=== PATIENT | male | born 1985 | race American Indian/Alaskan Native ===

== ENCOUNTER 2019-05-15 11:27 | Emergency (ER) | payer SELFPAY ==
[2019-05-15 13:16] VITALS: BP 120/78
[2019-05-15] MEDS ORDERED: HYDROcodone/ACETAMINOPHEN 10-325MG TAB PO ONE (13:18)
--- NOTE | 2019-05-15 13:23 | Emergency Department Report ---
ED Lower Extremity HPI - General Chief Complaint: Extremity Injury, Lower Stated Complaint: LEFT BIG TOE CUT Time Seen by Provider: 05/15/19 13:18 Source: patient Mode of arrival: Ambulatory Limitations: No Limitations - History of Present Illness Initial Comments: 33-year-old -Faroese male presents to the emergency room for right great toe injury from a lawnmower. Patient states that he was backing up a lot more which is electric and his foot got caught under. Patient reports that his pain is a 10 out of 10. Patient came by EMS. Patient denies any past medical history. Patient report his last tetanus shot was a year and a half ago when this happened to his right great toe from a [place]. Patient reports he does have a ride home. MD Complaint: foot injury -: This afternoon Injury: Toes: Left (Great toe) Type of Injury: other (Mangled by electric lawnmower) Place: home Severity scale (0 -10): 10 Improves With: nothing Worsens With: nothing Treatments Prior to Arrival: bandage - Related Data Previous Rx's Medication Instructions Recorded Last Taken Type Acetaminophen/Codeine [Tylenol 1 tab PO Q4HR PRN #12 tablet 05/15/19 Unknown Rx /Codeine # 3 tab] cephALEXin [Keflex] 500 mg PO Q12HR 10 Days #20 cap 05/15/19 Unknown Rx Allergies Allergy/AdvReac Type Severity Reaction Status Date / Time No Known Allergies Allergy Unverified 05/15/19 13:18 ED Review of Systems ROS: Stated complaint: LEFT BIG TOE CUT Other details as noted in HPI ED Past Medical Hx - Medications Home Medications: Home Medications Medication Instructions Recorded Confirmed Last Taken Type Acetaminophen/Codeine [Tylenol 1 tab PO Q4HR PRN #12 tablet 05/15/19 Unknown Rx /Codeine # 3 tab] cephALEXin [Keflex] 500 mg PO Q12HR 10 Days #20 cap 05/15/19 Unknown Rx ED Physical Exam - General Limitations: No Limitations General appearance: alert, in no apparent distress - Head Head exam: Present: atraumatic, normocephalic - Eye Eye exam: Present: normal appearance - ENT ENT exam: Present: mucous membranes moist - Expanded Lower Extremity Exam Left Foot/Toe exam: Present: tenderness, deformity, nail avulsion - Neurological Exam Neurological exam: Present: alert, oriented X3 - Psychiatric Psychiatric exam: Present: normal affect, normal mood ED Course Vital Signs 05/15/19 13:15 Temperature 98.3 F Pulse Rate 70 Respiratory 22 Rate Blood Pressure 120/78 [Right] O2 Sat by Pulse 99 Oximetry ED Lower Extremity MDM - Radiology Data Radiology results: report reviewed Ordering Physician: GRACE ARANGO Date of Service: 05/15/19 Procedure(s): XR toe(s) 2+V LT Accession Number(s): [id number] cc: GRACE ARANGO Fluoro Time In Minutes: LEFT FIRST TOE 3 VIEWS INDICATION / CLINICAL INFORMATION: Left first toe laceration from lawnmower. COMPARISON: None available. FINDINGS: BONES and JOINT(S): No acute fracture or subluxation. No significant arthritis. SOFT TISSUES: There is a laceration medially and distally along the first toe with associated edema. Probable punctate radiopaque foreign bodies are noted adjacently. ADDITIONAL FINDINGS: None. IMPRESSION: 1. Left first toe laceration with probable punctate radiopaque foreign bodies. 2. No acute osseous abnormality. Signer Name: Aramis Barnes MD Signed: 05/15/2019 2:23 PM Workstation Name: [id number] Transcribed By: MN Dictated By: Aramis Barnes MD Electronically Authenticated By: Aramis Barnes MD Signed Date/Time: 05/15/191422 DD/ 20 TD/TT: - Medical Decision Making 33-year-old -Faroese male presents to the emergency room for right great toe injury from a lawnmower. Patient states that he was backing up a lot more which is electric and his foot got caught under. Patient reports that his pain is a 10 out of 10. Patient came by EMS. Patient denies any past medical history. Patient report his last tetanus shot was a year and a half ago when this happened to his right great toe from a [place]. Patient reports he does have a ride home. Patient will be given [place] 10/325mg. Patient will have his foot soaked in normal saline and Betadine. There is no tissue to suture. Patient will be placed on antibiotics and pain medication. Patient is instructed to change dressing daily. Patient is to follow-up with her primary care provider in 3 to 5 days. Critical care attestation.: If time is entered above; I have spent that time in minutes in the direct care of this critically ill patient, excluding procedure time. ED Disposition Clinical Impression: Nail avulsion of toe Disposition: DC-01 TO HOME OR SELFCARE Is pt being admited?: No Does the pt Need Aspirin: No Condition: Stable Instructions: Toenail/Fingernail Removal (ED) Additional Instructions: Complete antibiotics as prescribed. Take [id number] ibuprofen and Tylenol 3. Change bandage daily. Prescriptions: cephALEXin [Keflex] 500 mg PO Q12HR 10 Days #20 cap Acetaminophen/Codeine [Tylenol /Codeine # 3 tab] 1 tab PO Q4HR PRN #12 tablet PRN Reason: Pain Referrals: DENICE HIGH MD [Staff Physician] - 3-5 Days Forms: Work/School Release Form(ED)
--- NOTE | 2019-05-15 14:27 | XRay Report ---
LEFT FIRST TOE 3 VIEWS INDICATION / CLINICAL INFORMATION: Left first toe laceration from lawnmower. COMPARISON: None available. FINDINGS: BONES and JOINT(S): No acute fracture or subluxation. No significant arthritis. SOFT TISSUES: There is a laceration medially and distally along the first toe with associated edema. Probable punctate radiopaque foreign bodies are noted adjacently. ADDITIONAL FINDINGS: None. IMPRESSION: 1. Left first toe laceration with probable punctate radiopaque foreign bodies. 2. No acute osseous abnormality. Signer Name: Aramis Barnes MD Signed: 05/15/2019 2:23 PM Workstation Name: [id number]
== END 2019-05-15 15:08 | disposition home or self-care (01) ==
LOC: ED 11:27
DX: S93.105A Unspecified dislocation of left toe(s), initial encounter (principal); Z79.899 Other long term (current) drug therapy; X58.XXXA Exposure to other specified factors, initial encounter; Y93.89 Activity, other specified; Y92.89 Other specified places as the place of occurrence of the external cause; Y99.8 Other external cause status
CPT/HCPCS: 99283

== ENCOUNTER 2020-04-20 12:28 | Emergency (ER) | payer SELFPAY ==
[2020-04-20 12:49] VITALS: BP 118/77
--- NOTE | 2020-04-20 13:02 | Emergency Department Report ---
ED Chest Pain HPI - General Chief Complaint: Chest Pain Stated Complaint: CHEST PAIN Time Seen by Provider: 04/20/20 12:42 Source: patient Mode of arrival: Ambulatory Limitations: No Limitations - History of Present Illness Initial Comments: This is a 34-year-old male nontoxic, well nourished in appearance, no acute signs of distress presents to the ED with c/o of chest pain that occurred yesterday at work. Patient stated that yesterday while at work heavy lifting developed midsternal chest pain with worsening on palpation. Patient stated symptoms has resolved but came to the ER due to work excuse note. Patient did ambulance came yesterday but he refused due to symptoms resolved. Patient currently denies any chest pain in the ER. Patient denies any upper respiratory symptoms. Patient denies any shortness of breath, hemoptysis, fever, chills, nausea, vomiting, headache, stiff neck, numbness, tingling, abdominal pain. Patient denies pleuritic chest pain. Patient denies any recent travels or long car rides. Patient denies any recent surgeries or any sick contacts. Patient denies any drug allergies or PMH. MD Complaint: chest pain -: days(s) Severity scale (0 -10): 0 Consistency: now resolved Improves With: nothing Worsens With: nothing re: denies: nausea, vomting, diaphoresis, dyspnea, sense of impending doom Other Symptoms: denies: cough, fever, syncope, rash, acid taste in mouth, leg swelling, palpitations, burping Treatments Prior to Arrival: none Aspirin use within the Past 7 Days: (0) No - Related Data Previous Rx's Medication Instructions Recorded Last Taken Type Acetaminophen/Codeine [Tylenol 1 tab PO Q4HR PRN #12 tablet 05/15/19 Unknown Rx /Codeine # 3 tab] cephALEXin [Keflex] 500 mg PO Q12HR 10 Days #20 cap 05/15/19 Unknown Rx Allergies Allergy/AdvReac Type Severity Reaction Status Date / Time No Known Allergies Allergy Verified 04/20/20 12:47 Heart Score - HEART Score History: Slightly suspicious EKG: Normal Age: < 45 Risk factors: No known risk factors Troponin: < normal limit HEART Score: 0 ED Review of Systems ROS: Stated complaint: CHEST PAIN Other details as noted in HPI Comment: All other systems reviewed and negative Constitutional: denies: chills, fever Eyes: denies: eye pain, eye discharge, vision change ENT: denies: ear pain, throat pain Respiratory: denies: cough, shortness of breath, wheezing Cardiovascular: chest pain. denies: palpitations Endocrine: no symptoms reported Gastrointestinal: denies: abdominal pain, nausea, diarrhea Genitourinary: denies: urgency, dysuria Musculoskeletal: denies: back pain, joint swelling, arthralgia Skin: denies: rash, lesions Neurological: denies: headache, weakness, paresthesias Psychiatric: denies: anxiety, depression Hematological/Lymphatic: denies: easy bleeding, easy bruising ED Past Medical Hx - Social History Smoking Status: Never Smoker Substance Use Type: None - Medications Home Medications: Home Medications Medication Instructions Recorded Confirmed Last Taken Type Acetaminophen/Codeine [Tylenol 1 tab PO Q4HR PRN #12 tablet 05/15/19 Unknown Rx /Codeine # 3 tab] cephALEXin [Keflex] 500 mg PO Q12HR 10 Days #20 cap 05/15/19 Unknown Rx ED Physical Exam - General Limitations: No Limitations General appearance: alert, in no apparent distress - Head Head exam: Present: atraumatic, normocephalic - Eye Eye exam: Present: normal appearance - Neck Neck exam: Present: normal inspection, full ROM - Respiratory Respiratory exam: Present: normal lung sounds bilaterally. Absent: respiratory distress, wheezes, rales, rhonchi, stridor, chest wall tenderness, accessory muscle use, decreased breath sounds, prolonged expiratory - Cardiovascular Cardiovascular Exam: Present: regular rate, normal rhythm, normal heart sounds. Absent: bradycardia, tachycardia, irregular rhythm, systolic murmur, diastolic murmur, rubs, gallop - GI/Abdominal GI/Abdominal exam: Present: soft. Absent: distended, tenderness - Extremities Exam Extremities exam: Present: full ROM - Back Exam Back exam: Present: full ROM - Neurological Exam Neurological exam: Present: alert, oriented X3, normal gait - Psychiatric Psychiatric exam: Present: normal affect, normal mood - Skin Skin exam: Present: warm, dry, intact, normal color. Absent: rash ED Course Vital Signs 04/20/20 12:47 Temperature 98.2 F Pulse Rate 73 Respiratory 16 Rate Blood Pressure 118/77 [Left] O2 Sat by Pulse 99 Oximetry - Reevaluation(s) Reevaluation #1: 04/20/20 13:01 Patient is speaking in full sentences with no signs of distress noted. - Consultations Consultation #1: 04/20/20 13:30 Patient has been consulted with Dr. Yun about patient history, physical exam, and labs/EKG and agrees with ED plan of care with consult with regional extension service specialist. Consultation #2: 04/20/20 13:50 Patient has been consulted with Danae EDWARDS (regional extension service specialist) about patient history, physical exam, and labs/EKG results patient has repolarization with no ST abnormalities and patient can be discharged with appropriate follow-up. KRISTIAN score - Kristian Score Age > 65: (0) No Aspirin use within the Past 7 Days: (0) No 3 or more CAD Risk Factors: (0) No 2 or more Angina events in past 24 hrs: (0) No Known CAD with more than 50% Stenosis: (0) No Elevated Cardiac Markers: (0) No ST Deviation Greater than 0.5mm: (0) No KRISTIAN Score: 0 ED Medical Decision Making - Lab Data Result diagrams: 04/20/20 12:49 04/20/20 12:49 Lab Results 04/20/20 04/20/20 Range/Units 12:49 12:49 WBC 5.6 (4.5-11.0) K/mm3 RBC 4.43 (3.65-5.03) M/mm3 Hgb 14.5 (11.8-15.2) gm/dl Hct 42.8 (35.5-45.6) % MCV 97 H (84-94) fl MCH 33 H (28-32) pg MCHC 34 (32-34) % RDW 13.7 (13.2-15.2) % Plt Count 183 (140-440) K/mm3 Lymph % (Auto) 46.8 H (13.4-35.0) % Jack % (Auto) 7.6 H (0.0-7.3) % Eos % (Auto) 2.6 (0.0-4.3) % Baso % (Auto) 0.5 (0.0-1.8) % Lymph # (Auto) 2.6 (1.2-5.4) K/mm3 Jack # (Auto) 0.4 (0.0-0.8) K/mm3 Eos # (Auto) 0.1 (0.0-0.4) K/mm3 Baso # (Auto) 0.0 (0.0-0.1) K/mm3 Seg Neutrophils % 42.5 (40.0-70.0) % Seg Neutrophils # 2.4 (1.8-7.7) K/mm3 Sodium 139 (137-145) mmol/L Potassium 3.9 (3.6-5.0) mmol/L Chloride 104.5 (98-107) mmol/L Carbon Dioxide 29 (22-30) mmol/L Anion Gap 9 mmol/L BUN 11 (9-20) mg/dL Creatinine 0.7 L (0.8-1.3) mg/dL Estimated GFR > 60 ml/min BUN/Creatinine Ratio 16 % Glucose 86 (75-100) mg/dL Calcium 9.0 (8.4-10.2) mg/dL Total Bilirubin 0.80 (0.1-1.2) mg/dL AST 17 (5-40) units/L ALT 14 (7-56) units/L Alkaline Phosphatase 51 (35-129) units/L Troponin T < 0.010 (0.00-0.029) ng/mL Total Protein 7.8 (6.3-8.2) g/dL Albumin 4.4 (3.9-5) g/dL Albumin/Globulin Ratio 1.3 % - EKG Data 04/20/20 14:17 Sinus rhythm at 61 bpm. Inferior infarct, old. Borderline ST ovation, lateral leads Reviewed and signed by . - Radiology Data Referring Physician: KARYNA KURTZ Patient Name: ROMAIN HOOD Date of : 1985 Sex: Male Report Date: 2020-04-20 Report Status: Finalized [facility] [address] [place] [address] XRay Report Signed Patient: ROMAIN HOOD MR#: [id number] 61 : 1985 Acct:[id number] Age/Sex: 34 / M ADM Date: 04/20/20 Loc: ED Attending Dr: Scot chu Physician: KARYNA KURTZ NP Date of Service: 04/20/20 Procedure(s): XR chest routine 2V Accession Number(s): [id number] cc: KARYNA KURTZ NP Fluoro Time In Minutes: XR chest routine 2V INDICATION / CLINICAL INFORMATION: Chest Pain COMPARISON: None available. FINDINGS: SUPPORT DEVICES: None. HEART / MEDIASTINUM: No significant abnormality. LUNGS / PLEURA: Lungs are clear. Costophrenic sulci are sharp. No pneumothorax. ADDITIONAL FINDINGS: No significant additional findings. IMPRESSION: 1. No acute findings. Signer Name: Dilan Warner MD Signed: 04/20/2020 1:23 PM Workstation Name: [id number] Transcribed By: CS Dictated By: Dilan Warner MD Electronically Authenticated By: Dilan Warner MD Signed Date/Time: 04/20/201322 DD/ 22 TD/TT: - Medical Decision Making This is a 34-year-old male that presents with atypical chest pain. Patient is stable and was examined by me. KRISTIAN and HEART score 0 pints. PERC score for DVT/SVT/PE 0 points. EKG normal sinus rhythm with no significant changes in ST. Chest xray dictated by the radiologist. PAtient is notified of the Xray report with no questions noted. Labs within normal limits. Negative troponin. Patient was instructed to Follow-up with a primary care/regional extension service specialist doctor in 2 days or if symptoms worsen and continue return to emergency room as soon as possible. At time of discharge, the patient does not seem toxic or ill in appearance. No acute signs of distress noted. Patient agrees to discharge treatment plan of care. No further questions noted by the patient. Critical care attestation.: If time is entered above; I have spent that time in minutes in the direct care of this critically ill patient, excluding procedure time. ED Disposition Clinical Impression: Atypical chest pain Disposition: DC-01 TO HOME OR SELFCARE Is pt being admited?: No Does the pt Need Aspirin: No Condition: Stable Instructions: Chest Pain (ED), Nonspecific Chest Pain, Adult Additional Instructions: Follow-up with a primary care/regional extension service specialist doctor in 2 days or if symptoms worsen and continue return to emergency room as soon as possible. Referrals: PRIMARY CAREMD [Referring] - 3-5 Days BUBBA METZ MD [Staff Physician] - 04/22/20 Forms: Work/School Release Form(ED) Time of Disposition: 14:19
[2020-04-20 13:27] LABS: Basophils % (Auto) 0.5 % (0.0-1.8); Eosinophils # (Auto) 0.1 K/mm3 (0.0-0.4); Eosinophils % (Auto) 2.6 % (0.0-4.3); Hematocrit 42.8 % (35.5-45.6); Hemoglobin 14.5 gm/dl (11.8-15.2); Lymphocytes # (Auto) 2.6 K/mm3 (1.2-5.4); Lymphocytes % (Auto) 46.8 % (13.4-35.0); Mean Corpuscular HGB Conc 34 % (32-34); Mean Corpuscular Volume 97 fl (84-94); Monocytes # (Auto) 0.4 K/mm3 (0.0-0.8); Monocytes % (Auto) 7.6 % (0.0-7.3); Platelet Count 183 K/mm3 (140-440); Red Blood Count 4.43 M/mm3 (3.65-5.03); Red Cell Distribution Width 13.7 % (13.2-15.2)
--- NOTE | 2020-04-20 13:28 | XRay Report ---
XR chest routine 2V INDICATION / CLINICAL INFORMATION: Chest Pain COMPARISON: None available. FINDINGS: SUPPORT DEVICES: None. HEART / MEDIASTINUM: No significant abnormality. LUNGS / PLEURA: Lungs are clear. Costophrenic sulci are sharp. No pneumothorax. ADDITIONAL FINDINGS: No significant additional findings. IMPRESSION: 1. No acute findings. Signer Name: Dilan Warner MD Signed: 04/20/2020 1:23 PM Workstation Name: [id number]
[2020-04-20 13:45] LABS: Alanine Aminotransferase 14 units/L (7-56); Albumin 4.4 g/dL (3.9-5); Blood Urea Nitrogen 11 mg/dL (9-20); Hemolysis Index 10
[2020-04-20 13:51] LABS: BUN/Creatinine Ratio 16
== END 2020-04-20 16:30 | disposition home or self-care (01) ==
LOC: ED 12:28
DX: R07.89 Other chest pain (principal); Z79.899 Other long term (current) drug therapy
CPT/HCPCS: 36415; 71046; 80053; 84484; 85025; 93005